=== PATIENT | male | born 1970 | race Hispanic/Latino ===

== ENCOUNTER 2017-06-10 05:47 | Day surgery (SDC) | payer OTHER ==
[2017-06-10 06:50] LABS: Basophils % (Auto) 0.7 % (0.0-1.8); Eosinophils # (Auto) 0.1 K/mm3 (0.0-0.4); Eosinophils % (Auto) 0.9 % (0.0-4.3); Hematocrit 42.9 % (35.5-45.6); Hemoglobin 15.1 gm/dl (11.8-15.2); Lymphocytes # (Auto) 1.7 K/mm3 (1.2-5.4); Lymphocytes % (Auto) 26.3 % (13.4-35.0); Mean Corpuscular HGB Conc 35 % (32-34); Mean Corpuscular Hemoglobin 33 pg (28-32); Mean Corpuscular Volume 94 fl (84-94); Monocytes # (Auto) 0.3 K/mm3 (0.0-0.8); Platelet Count 233 K/mm3 (140-440); Red Blood Count 4.59 M/mm3 (3.65-5.03); Red Cell Distribution Width 13.4 % (13.2-15.2)
[2017-06-10] MEDS ORDERED: NACL 0.9% 500 ML 500 ML IV SCH (07:00)
[2017-06-10 07:02] LABS: INR 0.87 (0.87-1.13)
[2017-06-10 07:27] LABS: BUN/Creatinine Ratio 24; Blood Urea Nitrogen 17 mg/dL (9-20); Hemolysis Index 32
[2017-06-10] MEDS ORDERED: VERSED ONE (08:41)
[2017-06-10] MEDS ORDERED: HEPARIN 10,000 UNITS/10 ML ONE (08:41)
[2017-06-10] MEDS ORDERED: HEPARIN/NS 5000 UNIT/500ML(CATH LAB) 1,000 ML IR ONE (08:41)
[2017-06-10] MEDS ORDERED: NITROGLYCERIN SYRINGE 0 ML ONE (08:41)
[2017-06-10] MEDS ORDERED: XYLOCAINE 2% INFILTRATI ONE (08:41)
[2017-06-10] MEDS ORDERED: SUBLIMAZE ONE (08:41)
[2017-06-10] MEDS ORDERED: ANGIOMAX IV ONE (09:22)
[2017-06-10] MEDS ORDERED: NACL 0.9% 0 ML ONE (09:22)
--- NOTE | 2017-06-10 12:17 | Discharge Summary ---
Short Stay Discharge Plan Activity: advance as tolerated Diet: low fat, low cholesterol, low salt Follow up with: LISA GILLETTE MD [Primary Care Provider] - 7 Days GILLIAN CARRERO MD [Staff Physician] - 7 Days
[2017-06-10] MEDS ORDERED: ULTRAM PO ONE (13:00)
[2017-06-10 13:47] VITALS: BP 136/76
--- NOTE | 2017-06-17 09:27 | Cardiac Catherization Report ---
HISTORY: The patient is a 47-year-old gentleman with a history of coronary artery bypass surgery who has developed a class 3 angina on medical therapy, so coronary angiography was recommended. PROCEDURES: Left heart catheterization, ventriculography, and coronary angiography via the right femoral artery using 5-Wallisian Dereck catheters and a pigtail catheter. The FU, SUN, saphenous vein grafts, and aorta were also studied. COMPLICATIONS: None. SEDATION: Intravenous Versed and fentanyl. TISSUE SAMPLE: None. ESTIMATED BLOOD LOSS: 10-20 mL. PREPROCEDURE DIAGNOSIS: Class 3 angina. POSTPROCEDURE DIAGNOSIS: Class 3 angina. HEMODYNAMICS: Central aortic pressure 118/71, left ventricular pressure 118/20. ANGIOGRAPHIC RESULTS: 1. Left ventricle: Left ventriculogram reveals a normal sized left ventricle with relatively mild hypokinesia at the anterior and anteroapical segments. The ejection fraction is 40%. 2. Right coronary artery: This vessel is the dominant vessel and it is diffusely diseased with a very proximal 90% stenosis, a mid 90% stenosis and a third 90% stenosis prior to the bifurcation. The posterolateral branch has a 50% stenosis. 3. Left coronary artery: This vessel is also diffusely diseased. The left main is free of remarkable lesions. The circumflex is a small caliber vessel that is diffusely irregular with a fairly proximal 70% stenosis. The LAD system is totally occluded fairly proximally. The diagonal system is diffusely irregular and fairly small. The distal LAD can be seen via the FU and is diffusely narrowed, small in caliber, but free of severe lesions. 4. FU: This vessel is patent throughout its course and is free of severe lesions. 5. SUN: This vessel was seen by flushing the innominate artery and is patent, was not used for bypass surgery. 6. Saphenous vein graft #1: Totally occluded proximally. 7. Saphenous vein graft #2: This graft inserts into the PDA of the right coronary artery. It is patent throughout its courses but he has diffuse irregularities. There is a proximal 40% stenosis, a mid 60% stenosis, and a distal 50% stenosis. There appears to be a soft plaque inserted segments of this vessel. 8. Aorta: Moderately dilated. No aortic regurgitation. FINAL IMPRESSION: 1. History of coronary artery bypass surgery with diffusely diseased kashia coronaries. There are 2 patent grafts. The circumflex has a 70% stenosis, but it is small in caliber. The results were reviewed with Dr. Orantes and there was an agreement made to continue to try aggressive medical therapy to relieve the symptoms. 3. There is mild left ventricular dysfunction. 4. Multiple medical problems including diabetes. PLAN: Aggressive medical therapy, CAD risk factor modification, office followup within 7 days. JOB# [id number] JAE/NTS
== END 2017-06-10 14:55 | disposition home or self-care (01) ==
LOC: CATHLABREC 05:47
PROVIDERS: ATTEND Internal Medicine
DX: I25.118 Atherosclerotic heart disease of native coronary artery with other forms of angina pectoris (principal); I11.0 Hypertensive heart disease with heart failure; I50.9 Heart failure, unspecified; I42.9 Cardiomyopathy, unspecified; E11.9 Type 2 diabetes mellitus without complications; E78.5 Hyperlipidemia, unspecified; E66.9 Obesity, unspecified; F41.9 Anxiety disorder, unspecified; Z79.82 Long term (current) use of aspirin; Z79.4 Long term (current) use of insulin; Z79.899 Other long term (current) drug therapy; Z87.891 Personal history of nicotine dependence; Z79.01 Long term (current) use of anticoagulants; Z95.1 Presence of aortocoronary bypass graft; Z82.49 Family history of ischemic heart disease and other diseases of the circulatory system; Z68.41 Body mass index [BMI] 40.0-44.9, adult
CPT/HCPCS: 36415; 80048; 82962; 85025; 85610; 85730; 93005; 93010; 93459; 96372; 99156; 99157; J1644; J2250; J3010; J7040; J0583; J1815; Q9967